=== PATIENT | male | born 1990 | race Asian ===

== ENCOUNTER 2023-12-28 14:12 | Emergency (ER) | payer OTHER, SELFPAY ==
[2023-12-28 14:18] VITALS: BP 145/98
[2023-12-28 15:44] LABS: % Basophils 0.7 % (0-2); % Eosinophils 7.4 % (0-6); % Immature Granulocytes 1.2 % (0-0.5); % Lymphocytes 11.2 % (20.5-51.1); % Monocytes 6.7 % (1.7-9.3); % Neutrophils 72.8 % (42.2-75.2); Absolute Basophils 0.1 10^3/uL (0-0.2); Absolute Eosinophils 0.7 10^3/uL (0-0.7); Absolute Immature Granulocytes 0.1 10^3/uL (0-0.05); Absolute Monocytes 0.6 10^3/uL (0.1-0.6); Absolute Neutrophils 6.6 10^3/uL (1.4-6.5); Hematocrit 40.6 % (39.0-52.0); Hemoglobin 14.6 g/dL (13.0-18.0); Mean Corpuscular Hgb 30.4 pg (27.0-31.0); Mean Corpuscular Volume 84.4 fL (80.0-94.0); Mean Platelet Volume 8.6 fL (7.4-10.4); Nucleated Red Blood Cells % 0 % (-); Platelet Count 320 10^3/uL (130-400); Red Blood Cell Count 4.81 10^6/uL (4.70-6.10); Red Cell Dist. Width 12.1 % (11.5-14.5)
--- NOTE | 2023-12-28 15:55 | ED.GENMED ---
History of Present Illness
General
Chief Complaint: Cough
Source: patient
Exam Limitations: none
Time Seen by Provider: 12/28/23 15:43
Nursing documentation reviewed up to this point in time: agreed with
Travel History
Have you had any contact with someone who has COVID-19?: No
Do you have any symptoms of coronavirus? Fever > 100 degrees, chills, cough, shortness of breath, sore throat, loss of taste or smell, muscle aches, or headache?: No
History of Present Illness
History of Present Illness:
Patient to ED with complaint of itchy skin since , cough x 6 weeks. States since he has had no appetite although he states he is drinking normally. Reports infrequent urination despite drinking. No prior history of same. Brought self
to ED for eval.
Past History
Past History
ED Past Medical History: None
ED Past Surgical History: None
Social History
Tobacco: Non-smoker
Alcohol: Occasional
Drug: None
Personal: Single
Employment: Employed
Review of Systems
Review of Systems
Allergies reviewed?: Yes
All Other Systems: ROS reviewed and negative except as documented in HPI and ROS
Constitutional: Reports no symptoms
EENT: Reports no symptoms
Respiratory: Reports no symptoms
Cardiac: Reports no symptoms
ABD/GI: Reports no symptoms
: Reports dark urine and other (infrequent urination)
Musculoskeletal: Reports no symptoms
Skin: Reports itching (generalized)
Neurological: Reports no symptoms
Psychiatric: Reports no symptoms
Phy Exam
General Physical Exam
General Presentation: well appearing and no apparent distress
General age: appears stated age
General Skin: warm and dry
General Habitus: normal
General Mental: alert
Cardiovascular Exam
Cardiovascular Exam: regular rate/rhythm and no edema
Pulmonary Exam
Pulmonary Exam: lungs clear, no respiratory distress and chest non tender
Gastrointestinal Exam
Gastrointestinal Exam: normal bowel sounds, non tender, soft and no organomegaly
Musculoskeletal Exam
Musculoskeletal Exam: full ROM and neuro vasc intact
Skin Exam
Skin Exam: normal color, warm/dry and no rash
Psychiatric Exam
Psychiatric Exam: normal mood/affect
Course
Orders/Labs/Results
Orders:
Orders
12/28/23 15:35
Complete Blood Count/With Diff Urgent
Comprehensive Metabolic Panel Urgent
Lipase Urgent
Comment: ADD
Monotest Urgent
Comment: ADD ON
Urinalysis Reflex To Culture Urgent
Date Specimen was Collected: 12/28/23
Time Specimen was Collected: 15:29
12/28/23 15:53
CR Chest - 2 Views Urgent
Comment:
Reason For Exam: cough
12/28/23 16:14
US Abdomen Complete/Upper Urgent
Comment:
Reason For Exam: elevated LFT's
12/28/23 16:15
Add On- LAB Urgent
Tests Added?: lipase
12/28/23 19:57
Add On- LAB Urgent
Tests Added?: mononucleosis
12/28/23 19:58
Legionella Urinary Antigen Urgent
DEBBIE Source: Urine
Specimen Description:
Abnormal Lab Results
12/28/23
15:35
Abs Immat Gran (auto) 0.1 H 10^3/uL
(0-0.05)
Absolute Neuts (auto) 6.6 H 10^3/uL
(1.4-6.5)
Absolute Lymphs (auto) 1.0 L 10^3/uL
(1.2-3.4)
Immature Gran % 1.2 H %
(0-0.5)
Lymphocytes % 11.2 L %
(20.5-51.1)
Eosinophils % 7.4 H %
(0-6)
Sodium 134 L mmol/L
(135-145)
Glucose 135 H mg/dl
(70-99)
Total Bilirubin 5.0 H mg/dl
(0.2-1.3)
AST 101 H U/L
(17-59)
ALT 272 H U/L
(0-50)
Alkaline Phosphatase 199 H U/L
(38-126)
Urine Ketones 1+ A
(Negative)
Urine Bilirubin 1+ A
(Negative)
Urine Urobilinogen 2+ A
(Neg - 1+)
12/28/23 15:35
12/28/23 15:35
Vital Signs
Initial and Last Documented VS:
Initial Vital Signs
Temp Pulse Resp BP Pulse Ox
98.4 F 110 16 145/98 98
12/28/23 14:18 12/28/23 14:18 12/28/23 14:18 12/28/23 14:18 12/28/23 14:18
Last Documented Vital Signs
Temp Pulse Resp BP Pulse Ox
98.4 F 91 18 140/74 99
12/28/23 14:18 12/28/23 19:46 12/28/23 19:46 12/28/23 19:46 12/28/23 19:46
*Radiology
Radiology exam reviewed: preliminary read by ED provider
*Pulse Oximetry
Patient hypoxic: no
*Critical Care Note
Total Time (30-74mins, 75-104mins- exclusive of procedures): Not Applicable
Update Note
Update Note:
Labs, US results discussed with patient. LFT's with mild elevation. No abdominal pain on exam. He denies any abdominal pain prior to his visit here. Will ldischarge home. Legionella antibody result pending. Recommend close follow upw ith PCP,
repeat labs in 1-2 weeks. Given instructions on s/s to return to ED and he is agreeable to plan.
ED Attending Note
-
Portions of this chart may have been created with voice recognition software.� Occasional wrong word or��sound alike� substitutions may have occurred due to the inherent limitations of voice recognition software.
Discharge Plan
Departure
Patient Disposition: Home (Routine Discharge)
Date of Disposition: 12/28/23
Time of Disposition: 20:52
Patient with high blood pressure during this ER visit?: No
Condition: Good
Covid-19: Not Applicable
Discharge Problem:
Hepatic steatosis
Instructions: Liver Function Test
Prescriptions:
New
benzonatate 200 mg capsule
200 mg PO TID PRN (Reason: Cough) Qty: 30 0RF
Referrals:
[facility] [Outside] - Call in 1-3 days for appt
UNKNOWN - PT DOES,NOT KNOW [Family Provider] -
Activity Restrictions/Additional Instructions:
Please have your liver enzymes rechecked in 1-2 weeks. Return to the emergency department immediately for abdominal pain, vomiting, or for any further concerns.
Interventions
Interventions:
*Risk Screen - Suicide Last Done: 12/28/23 14:18
*General Assessment Last Done: 12/28/23 14:18
*Neglect/Abuse Screening Last Done: 12/28/23 14:18
ED- Fall Risk Assessment Last Done: 12/28/23 21:06
*ED COVID-19 Vaccine History Last Done: 12/28/23 14:18
*Nursing Disposition Last Done: 12/28/23 21:06
ED- Pulmonary Assessment Last Done: 12/28/23 15:40
Discharge Date and Time
Discharge Date/Time: 12/28/23 21:06
Print Language: MEXICAN
[2023-12-28 15:58] LABS: Urine Albumin Trace (Neg - Trace); Urine Bilirubin 1+ (Negative); Urine Character Clear (Clear); Urine Color Amber; Urine Glucose Negative (Negative); Urine Ketone 1+ (Negative); Urine Leukocyte Negative (Negative); Urine Nitrite Negative (Negative); Urine Occult Blood Negative (Negative); Urine Urobilinogen 2+ (Neg - 1+)
[2023-12-28 16:00] LABS: ALT (SGPT) 272 U/L (0-50); AST (SGOT) 101 U/L (17-59); Albumin 4.5 g/dl (3.5-5.0); Alkaline Phosphatase 199 U/L (38-126); Blood Urea Nitrogen 10 mg/dl (9-20); Calcium 9.8 mg/dl (8.4-10.2); Carbon Dioxide 27 mmol/L (22-30); Chloride 99 mmol/L (98-107); Glucose 135 mg/dl (70-99); Potassium 3.5 mmol/L (3.5-5.1); Sodium 134 mmol/L (135-145); Total Protein 7.7 g/dl (6.3-8.2); eGFR > 60.00
[2023-12-28 16:56] LABS: Lipase 95 U/L (23-300)
[2023-12-28 19:46] VITALS: BP 140/74
[2023-12-28 20:44] LABS: Monotest Negative (Negative)
== END 2023-12-28 21:06 | disposition home or self-care (01) ==
LOC: EMR 14:12
PROVIDERS: EMERGENCY PHYSICIAN Emergency Medicine
DX: K76.0 Fatty (change of) liver, not elsewhere classified (principal); L29.9 Pruritus, unspecified; R05.9 Cough, unspecified; R79.89 Other specified abnormal findings of blood chemistry
CPT/HCPCS: 99284; 71046; 76700; 80053; 81003; 83690; 85025; 86308; 87449